=== PATIENT | male | born 1950 | race Caucasian/White ===

== ENCOUNTER → 2023-03-02 16:23 | Outpatient (CLI) | payer MEDICARE, OTHER, SELFPAY ==
[2023-03-02 16:31] LABS: Appearance Urine UA CLEAR; Bilirubin Urine UA NEGATIVE (NEGATIVE); Color Urine UA YELLOW; Glucose Urine UA NEGATIVE (Negative); Ketones Urine UA NEGATIVE (NEGATIVE); Leukocyte Esterase Urine UA NEGATIVE (NEGATIVE); Nitrite Urine UA NEGATIVE (Negative); Occult Blood Urine UA NEGATIVE (Negative); Protein Urine UA NEGATIVE (Negative); Specific Gravity Urine UA 1.015 (1.000-1.035); Urobilinogen Urine UA 0.2 E.U./dL (0.2); pH Urine UA 7.5 (4.5-8.0)
[2023-03-02 16:42] LABS: Bacteria Urine None Seen; Culture Indicated Urine Cult Not Indicated; RBC Urine None Seen (0-5/HPF); Squamous Epithelial Cell Urine 0-1 /HPF (0-5/HPF); WBC Urine None Seen (0-5/HPF)
== END ==
PROVIDERS: PCP Nurse Practitioner Family; Visit Provider Specialist
DX: N40.1 Benign prostatic hyperplasia with lower urinary tract symptoms (principal); N13.8 Other obstructive and reflux uropathy; R97.20 Elevated prostate specific antigen [PSA]; R33.9 Retention of urine, unspecified; Z87.898 Personal history of other specified conditions
CPT/HCPCS: 81001; 81002; 99215

== ENCOUNTER → 2023-03-30 10:40 | Outpatient (CLI) | payer MEDICARE, OTHER, SELFPAY ==
--- NOTE | 2023-03-30 | DI.MRI.S_ITS ---
PROCEDURE: MR PELVIC PROSTATE PROTOCOL INDICATIONS: Elevated prostate specific antigen [PSA] TECHNIQUE: Coronal HASTE, axial T1 FSE with fat saturation, 3-plane nonbreath-hold T2 FSE. After the administration of contrast, dynamic axial, delayed axial and coronal VIBE or 2-D FLASH with fat saturation through the pelvis. Diffusion weighted imaging and ADC was performed. COMPARISON: [facility], MR, MR PELVIS PROSTATE SCREENING PROTOCOL, 10/26/2021, 9:16. FINDINGS: Image quality: Diffusion weighted and dynamic contrast enhanced images are diagnostic. Prostate: Gland size is 5.3 x 5.2 x 4 cm; ellipsoid gland volume is 57 mL. No significant foci of intrinsic T1 hyperintensity to suggest hemorrhage. Multiple BPH nodules. No significant areas of ADC hypointensity in the peripheral zone. No suspicious foci of the T2 hypointense signal in the transitional zone. No PI-RADS 4 or 5 observations. Genitourinary system: Bladder wall thickness is normal. Distal ureters are non distended. Bowel and peritoneum: No pathologic free pelvic fluid. Inferior colon and small bowel loops are normal in caliber. Nodes and vessels: No pelvic or inguinal adenopathy by size criteria. Iliac vessels are normal in caliber. Soft tissues: Probable fat containing left inguinal hernia. Bones: Marrow demonstrates normal overall signal, without lesions to suggest metastases. IMPRESSION: 1. Prostatomegaly. Multiple BPH nodules. 2. No PI-RADS 4 or 5 observations. 3. No adenopathy. Dictated by: Juvencio Yanez M.D. on 03/30/2023 at 15:42 Approved by: Juvencio Yanez M.D. on 03/30/2023 at 15:53
[2023-04-01 09:14] LABS: PSA Free % 12.1 % (.); PSA, Total 2.9 ng/mL (0.0-4.0)
== END ==
PROVIDERS: PCP Nurse Practitioner Family; Referring Provider Specialist; Visit Provider Specialist
DX: N40.0 Benign prostatic hyperplasia without lower urinary tract symptoms (principal); N40.2 Nodular prostate without lower urinary tract symptoms; R97.20 Elevated prostate specific antigen [PSA]
CPT/HCPCS: 36415; 72197; 84153; 84154

== ENCOUNTER 2023-10-03 06:37 | Day surgery (SDC) | payer MEDICARE, OTHER, SELFPAY ==
[2023-09-29 08:58] VITALS: BMI 33.3
[2023-10-03] VITALS (8 sets, daily range): BP systolic 82–144; BP diastolic 49–78; PULSE 63–69; RESP 14–18; TEMP 36.3–37.3; O2SAT 95–97; BMI 33.1
--- NOTE | 2023-10-03 | PATH_ITS ---
[facility] Accession Number: [id number] No. of containers..01 Tissue . 01 Material submitted: . prostate - PROSTATE CHIPS . 01 Diagnosis: PROSTATE, TURP: Benign prostatic parenchyma. No evidence of malignancy. KECIA 10/07/2023 1148 Local . 01 Electronically signed: . Gurpreet Aponte MD, PhD, Pathologist NPI- [id number] . 01 Gross description: . Received in formalin with two identifiers and prostate chips, are multiple álvarez rubbery tissue fragments admixed with hemorrhagic material weighing 12 grams and aggregating to 5.3 x 5.2 x 1.9 cm. Álvarez tissue fragments and some hemorrhagic material are submitted in cassettes A1-A6. ([id number]) /KECIA 10/04/2023 0939 Local . 01 Pathologist provided ICD-10: N40.1 . 01 CPT . 615091 Specimen Comment: A courtesy copy of this report has been sent to [phone] Performed at: [address] [address] [address], [place], [place] [id number] MD Sreedhar Galindo MD Phone: [phone]
[2023-10-03] MEDS: LACTATED RINGERS 1,000 ML 42 ML IV (07:26)
[2023-10-03] MEDS: ACETAMINOPHEN IV 1,000 MG/100 ML VIAL 400 MG IV (07:30)
[2023-10-03 07:32] LABS: Hematocrit 41.4 % (41-53); Hemoglobin 14.5 g/dL (13.5-17.5)
--- NOTE | 2023-10-03 07:39 | PM.PREOP ---
Pre-operative Note Interval Note History & Physical reviewed/Exam performed by Physician: Yes Changes to H&P: No
--- NOTE | 2023-10-03 07:45 | P.HP_ITS ---
History of Present Illness History of Present Illness Date Patient Seen: 10/03/23 Time Patient Seen: 07:45 Chief complaint: Aquablation *OPB* Narrative: Ten is a 73-year-old male presenting today for scheduled Aquablation. He has a several year history of advancing mixed obstructive and irritative voiding symptoms. He has been dissatisfied on dual pharmacologic therapy with tamsulosin and finasteride over the last 2-3 years. Cystoscopy 12/03/2021 revealed impressive trilobar hyperplasia of small lip of intravesical median lobe. 2+ provider trabeculation diverticulum stone or neoplasm. Pelvic MRI with contrast 03/30/2023 showed no concerning PI-RADS lesions. Prostate volume was measured at 57 cc. Uroflowmetry reveals maximum flow rate of 8.8 cc/second, median flow rate of 4.5 cc/second for a total voided volume of 283.9 cc. Residual volume was 219 cc. Elevated postvoid residual volumes of been consistently demonstrated over the last 2-3 years. [facility] Medical History Incomplete bladder emptying Erectile dysfunction History of elevated PSA BPH w urinary obs/LUTS BPH (benign prostatic hyperplasia) Skin cancer Surgical History H/O circumcision Social History household members: spouse Smoking Status: Never smoker alcohol intake: current Meds Home Medications and Allergies Home Medications Medication Instructions Recorded Confirmed Type losartan 50 mg tablet 50 mg PO DAILY 02/01/20 10/03/23 History omeprazole 20 mg capsule,delayed 20 mg PO DAILY 02/01/20 10/03/23 History release pravastatin 40 mg tablet 40 mg PO DAILY 02/01/20 10/03/23 History rizatriptan 10 mg tablet 10 mg PO ONCE PRN Migraine Headache 02/01/20 10/03/23 History zolpidem 10 mg tablet 10 mg PO DAILY PRN Insomnia 02/01/20 10/03/23 History montelukast 10 mg tablet 10 mg PO BEDTIME 12/07/22 10/03/23 History psyllium seed (sugar) oral powder 1 tbsp PO DAILY 08/22/23 06/17/24 History (Metamucil (sugar) oral powder) sildenafil (pulm.hypertension) 20 20 - 80 mg (1 - 4 x 20 mg) PO 12/29/22 10/03/23 Rx mg tablet DAILY PRN sexual activity #40 tabs finasteride 5 mg tablet 5 mg PO DAILY #90 tabs 01/14/23 10/03/23 Rx tamsulosin 0.4 mg capsule See Rx Instructions .Route 06/20/23 10/03/23 Rx .COMPLEX #180 caps Allergies Allergy/AdvReac Type Severity Reaction Status Date / Time No Known Drug Allergies Allergy Verified 10/03/23 07:10 Review of Systems Review of Systems ROS: Yes All systems reviewed with the patient and are negative except as otherwise documented Exam Vital Signs (past 8 hours): - 10/03/23 07:22 Temperature 99.1 F Pulse Rate 69 Respiratory Rate 18 Blood Pressure 144/78 H Pulse Oximetry 97 Oxygen Delivery Method Room Air Oxygen Delivery Method Room Air Narrative Exam Narrative: He is a well-developed, at least moderately over nourished (BMI 33.1) male in no acute distress. Head/neck-sclera clear pupils are equal and bilaterally. Chest-equal and unlabored expansion bilaterally. Heart-normal sinus rhythm. Objective Labs 10/03/23 07:14 Labs: Laboratory Results - last 24 hr 10/03/23 07:14 Hgb 14.5 Hct 41.4 Assessment & Plan Assessment & Plan narrative: Assessment: 1. Bladder outlet obstruction due to BPH. 2. Failure/dissatisfaction with medical therapy. Plan: 1. Proceed with Aquablation. Detailed informed consent previously been documented in [facility] preoperative note (out dated for 30 day window).
[2023-10-03] MEDS: CEFAZOLIN 2 GM/100 ML PREMIX 100 ML IV (07:55)
--- NOTE | 2023-10-03 08:15 | SUR.OPER ---
Lithotomy on padded OR bed, head on pillow, arms secured on padded arm boards at <90 degrees abduction. Legs secured in padded yellow fins stirrups.
[2023-10-03] MEDS: TRANEXAMIC ACID 1,000 MG in SODIUM CHLORIDE 0.9% 100 ML 200 MG IV ×2 (08:46→09:25)
--- NOTE | 2023-10-03 09:39 | PM.OP.1 ---
Operative Date/Time/Diagnoses Date of procedure: 10/03/23 Time of procedure: 09:39 Pre-op diagnosis: 1. Bladder outlet obstruction. 2. BPH. 3. Failure/dissatisfaction with medical therapy. Post-op diagnosis: same Procedure & Clinicians Procedure: 1. Cystoscopy/AQUABLATION. 2. Cystoscopy/Transurethral resection of prostate. 3. Transrectal ultrasonography-diagnostic and guidance. Same procedure as scheduled: Yes Indications: 1. Bladder outlet obstruction. 2. BPH. 3. Failure/dissatisfaction with medical therapy. Surgeon: Saul Chauhan Click Yes if Unassisted: Yes Anesthesia Type: General Operative Notes Findings: 1. Urethra-normal caliber without annular stricture or lesion. 2. External sphincter- coapted with normal overlying urothelium. 3. Prostate-impressive trilobar hyperplasia and elevated median bar. 4. Bladder-2+ trabeculation. Normal ureteral orifices bilaterally. Closure Type: not applicable Specimen(s): other (Prostate chips.) Applied: catheter (Twenty-two [place] three-way hematuria catheter to sterile normal saline CBI.) Estimated Blood Loss (mL): 15 Blood products transfused: none Procedure in detail: The patient was positioned supine was administered general anesthesia. He was then repositioned semi-lithotomy lower abdomen, genitalia, and groin were then prepped and draped sterile fashion. 60 cc of lubricating jelly were then instilled in the rectal vault the transrectal ultrasound probe was then advanced gently into the rectal vault parallel to the horizontal floor. Positioning in the sagittal and transverse plane and necessary adjustments were then made. Now the treatment hand piece was passed in the lower urinary tract under direct visualization with the findings as described above. It was then positioned parallel and in line with the transrectal ultrasound probe. Images were obtained in the transverse and sagittal plane as needed for treatment 1 localization and calibration. In the transverse plane, at widest circumference of prostate treatment depth markers were placed safely within the surgical capsule. Now, in the sagittal plane treatment contours were identified and cursor placement conducted at proximal edge of treatment, bladder neck, mid prostate, and external sphincter. The bile robot was then activated in under this Surgeons control 1st pass of Aquablation was conducted without incident. Now treatment contours were adjusted as indicated in the sagittal plane before initiation of the 2nd pass, again under the surgeon's control. The treatment hand piece was then removed. The transrectal ultrasound probe was then readjusted to allow access with the resectoscope which was prepared and advanced lower urinary tract under direct visualization. The Ellik evacuator was then utilized to clear clot from the bladder and prostate fossa. The resectoscope was then fitted with a heavy resecting loop and focal bladder neck cautery was conducted where indicated laterally and posterolaterally on both sides. Treated tissue was then resected from the bladder neck margin proximally. An additional small amount of untreated tissue anteriorly was taken near the bladder neck and proximal prostate fossa. Hemostasis was attained with electrocautery. All chips were then collected using the Ellik evacuator and submitted to pathology for routine gross and microscopic examination. The bladder was then filled partially and the resectoscope was removed. A [address] [place] [address] hematuria catheter was then advanced lower urinary tract with the assistance of a catheter guide. The balloon was inflated to 30 cc and the catheter was irrigated clear before attaching it to sterile normal saline continuous bladder irrigation. The patient was then repositioned in supine, was awakened, transferred to [facility], and transferred to recovery in stable condition. Complications: none Post-operative Condition: stable Disposition: PACU Plan for aftercare: 1. Same-day discharge verses admission as same-day surgery.
[2023-10-03] MEDS: OXYCODONE IR 5 MG TABLET PO (10:10)
--- NOTE | 2023-10-03 15:13 | SUR.PHASEII ---
Patient declined leg bag. Patient and spouse shown how to empty and care for pedraza catheter. Sterile saline for irrigation and syring provided, verbal instructions given for irrigating pedraza PRN per Dr. Chauhan VVO.
== END 2023-10-03 14:50 | disposition home or self-care (01) ==
PROVIDERS: PCP Nurse Practitioner Family; Referring Provider Specialist; Visit Provider Specialist
PROC: 0VT08ZZ Resection of Prostate, Via Natural or Artificial Opening Endoscopic (ICD-10-PCS; CPT 52597; principal; 2023-10-03 07:45)
DX: N40.1 Benign prostatic hyperplasia with lower urinary tract symptoms (principal); N13.8 Other obstructive and reflux uropathy
CPT/HCPCS: 0421T; 85014; 85018; C2596; J0136; J0690; J1100; J1170; J2405; J2704; J3490

== ENCOUNTER → 2023-10-05 16:00 | Outpatient (CLI) | payer MEDICARE, OTHER, SELFPAY | PROVIDERS: PCP Nurse Practitioner Family; Visit Provider Specialist | DX: R33.9 Retention of urine, unspecified (principal) | CPT/HCPCS: 51798; 81002; 87086 ==

== ENCOUNTER → 2023-11-23 08:36 | Outpatient (CLI) | payer MEDICARE, OTHER, SELFPAY | PROVIDERS: PCP Nurse Practitioner Family; Referring Provider Urology; Visit Provider Urology | DX: R33.9 Retention of urine, unspecified (principal); N40.1 Benign prostatic hyperplasia with lower urinary tract symptoms; N13.8 Other obstructive and reflux uropathy | CPT/HCPCS: 87086 ==

== ENCOUNTER → 2024-01-05 10:32 | Outpatient (CLI) | payer MEDICARE, OTHER, SELFPAY ==
[2024-01-05 13:15] LABS: Prostate Specific Antigen 4.78 ng/mL (0.10-4.00)
== END ==
LOC: LAB 10:33
PROVIDERS: PCP Nurse Practitioner Family; Referring Provider Urology; Visit Provider Urology
DX: R97.20 Elevated prostate specific antigen [PSA] (principal)
CPT/HCPCS: 36415; 84153

== ENCOUNTER → 2024-05-04 10:45 | Outpatient (CLI) | payer MEDICARE, OTHER, SELFPAY ==
--- NOTE | 2024-05-04 10:46 | DI.NM.S_ITS ---
PROCEDURE: NM BONE SCAN WHOLE BODY RADIOPHARMACEUTICAL: 21.5 mCi Tc-99m MDP IV. INDICATIONS: Prostate cancer evaluate for metastases TECHNIQUE: Delayed whole-body scintigrams were obtained approximately 3-4 hours after intravenous injection of radiotracer. Anterior and posterior views were acquired from vertex to feet. COMPARISON: [facility], MR, MR PELVIS PROSTATE SCREENING PROTOCOL, 10/26/2021, 9:16. MR, MR PELVIC PROSTATE PROTOCOL, 03/30/2023, 10:53. FINDINGS: There is a focal uptake in the left frontal bone just left of the midline. Foci of mildly increased uptake are seen in anterior right 7th, 9th and 10th ribs and the left 8th rib. No lesions are identified in sternum, clavicles, scapulae, bony pelvis, and visualized shafts of the long bones. There are foci of increased uptake in thoracic and lumbar spine most likely secondary to degenerative disc and facet disease; early metastasis to spine could be obscured by degenerative changes. There are foci of increased periarticular activity, most pronounced in shoulders, left wrist and left knee, compatible with degenerative/arthritic changes. Bladder is distended, partially obscure pelvis. There are 2 kidneys, normal in size and position. There is normal soft tissue uptake. IMPRESSION: 1. A focal uptake in the left frontal bone near the midline. Recommend radiographic correlation, or consider CT if there is high clinical suspicion for metastatic disease. 2. Foci of mildly increased uptake in several anterior ribs bilaterally, indeterminate. Recommend radiographic correlation and follow-up. Dictated by: Yari Dai M.D. on 05/04/2024 at 14:51 Approved by: Yari Dai M.D. on 05/04/2024 at 14:57
== END ==
PROVIDERS: PCP Nurse Practitioner Family; Referring Provider Urology; Visit Provider Urology
DX: C61 Malignant neoplasm of prostate (principal)
CPT/HCPCS: 78306; A9503